=== PATIENT | male | born 1985 | race Caucasian/White ===

== ENCOUNTER 2024-07-24 13:07 | Emergency (ER) | payer OTHER ==
[~2024-07-24] VITALS: Ht 172.7 cm; Wt 84.8 kg
[~2024-07-24 13:07] MED LIST: TRAMADOL HCL50 MG PO
[2024-07-24] MEDS ORDERED: SODIUM CHLORIDE 0.9% 1,000 ML IV ONE (13:25)
[2024-07-24] MEDS ORDERED: MORPHINE Sulfate 2 MG/ML SYR IV ONE (13:25)
[2024-07-24] MEDS ORDERED: Ondansetron Hydrochloride 4 MG/2 ML VIAL IV ONE ×2 (13:25→15:05)
[2024-07-24] MEDS ORDERED: Ketorolac Tromethamine 15 MG/ML VIAL IV ONE (13:25)
[2024-07-24 13:47] LABS: BASO % 0.5 % (0.0-1.0); EOS # 0.1 10*3/uL (0.0-0.4); EOS % 1.8 % (1.0-4.0); HEMATOCRIT 49.2 % (42.0-52.0); MEAN CELL VOLUME 92.3 fl (80.0-94.0); MEAN CORPUSCULAR HGB 31.3 pg (27.0-31.0); MEAN CORPUSCULAR HGB CONC 33.9 g/dl (33.0-37.0); MEAN PLATELET VOLUME 11.8 fl (9.6-12.3); MONO # 0.8 10*3/uL (0.1-1.0); MONO % 12.4 % (3.0-9.0); NEUT % 49.7 % (47.0-73.0); PLATELET COUNT AUTOMATED 280 10*3/uL (130-400); RED BLOOD COUNT 5.33 10*6/uL (4.50-5.90); RED CELL DISTRI WIDTH 11.8 % (0-14.5)
[2024-07-24 14:08] LABS: BUN 11 mg/dl (9-23); CHLORIDE 103 mmol/L (98-107); POTASSIUM 4.2 mmol/L (3.4-5.1)
[2024-07-24] MEDS ORDERED: HYDROmorphone Hydrochloride 1 MG/ML SYR IV ONE (15:05)
[2024-07-24] MEDS ORDERED: Ondansetron4 MG PO (15:08)
[2024-07-24] MEDS ORDERED: PERCOCET 5-3251 EACH PO (15:08)
[2024-07-24] MEDS ORDERED: FLOMAX0.4 MG PO (15:15)
== END 2024-07-24 15:18 | disposition home or self-care (01) ==
LOC: ED 13:07
PROVIDERS: Emergency Medicine
DX: N20.0 Calculus of kidney (principal)